=== PATIENT | female | born 1995 | race Caucasian/White ===

== ENCOUNTER 2023-12-01 22:17 | Emergency (ER) | payer SELFPAY ==
[~2023-12-01] VITALS: Ht 162.6 cm; Wt 74.8 kg
[2023-12-01 22:40] VITALS: PULSE 86; RESP 18; TEMP 99.6; O2SAT 100
[2023-12-01] MEDS ORDERED: AUGMENTIN 500-1 EACH PO (22:50)
[2023-12-01] MEDS ORDERED: TYLENOL325 MG PO (22:50)
[2023-12-01] MEDS: TETANUS/DIPHTHERIA TOX ADULT 0.5 ML SYR IM STA (23:14)
[2023-12-01] MEDS: BACITRACIN ZINC 0.9GM TP ONE (23:14)
== END 2023-12-01 23:42 | disposition home or self-care (01) ==
LOC: FSED 22:21
DX: S61.451A Open bite of right hand, initial encounter (principal); S00.81XA Abrasion of other part of head, initial encounter; Y04.1XXA Assault by human bite, initial encounter; Y92.89 Other specified places as the place of occurrence of the external cause
CPT/HCPCS: 90714; 99283